=== PATIENT | male | born 1985 | race Caucasian/White ===

== ENCOUNTER 2020-03-15 01:29 | Emergency (ER) | payer SELFPAY ==
[~2020-03-15] VITALS: Ht 182.9 cm; Wt 111.1 kg
--- OUTSIDE RECORDS SUMMARY | 2020-03-15 01:32 | XMS REPORT ---
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 Allergies, Adverse Reactions, Alerts Allergy Name Allergy Type Status Severity Reaction(s) Onset Date Inacti ve Date Treating Clinician Comments No Known Allergies DA Active U 2020-03-04 00:00:00 Medications This patient has no known medications. 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 COMPARISON: None available. Location: TH. 3 views of the right knee: No acute fracture or dis location. Knee joint is preserved. Articular surfaces are well marginated without osteochondral lesions. Mineralization and the soft tissues are normal. Small suprapatellar joint fluid. IMPRESSION: No acute fracture or dislocation. Knee joint is preserved. Small suprapatellar joint fluid. at 181 Reported and signed by: Delgado Segovia M.D. CC: Glenn Swenson NP Technologist: RT DEMARCO(Tamika) Trnscrd Date/Time/By: 03/08/2020 (1816) : By: [email or web address] Orig Print D/T: S: 03/08/2020 (1819) PAGE 1 Signed Report Novel Coronavirus 2019 nCoV 2020-03-06 21:45:00 Novel Coronavirus 2019 nCoV (test code = COVID19) Negative Negative Does patient have the clinical criteria consistent with COVID-19? YIs the patien t going to be discharged home? YBASIC METABOLIC [id number] 15:35:00* Test Item Value Reference Range Comments SODIUM (test code = NA) 141 mmol/L 136-145 POTASSIUM (test code = K) 3.6 mmol/L 3.5-5.1 CHLORIDE (test code = CL) 106.0 mmol/L 98-107 CARBON DIOXIDE (test code = CO2) 30.0 mmol/L 21-32 ANION GAP (test code = GAP) 8.6 10-20 GLUCOSE (test code = GLU) 93 mg/dL 74-106 BLOOD UREA NITROGEN (test code = BUN) 11 mg/dL 7-18 GLOMERULAR FILTRATION RATE (test code = GFR) > 60 mL/min >=6 0 Estimated GFR by using Modified MDRD formula.Chronic kidney disease is defined as either kidney damageor GFR <60 mL/min/1.73 m2 for >3 months. CREATININE (test code = CREAT) 1.10 mg/dL 0.7-1.3 BUN/CREATININE RATIO (test code = BUN/CREA) 10.0 10-2 0 CALCIUM (test code = CA) 8.7 mg/dL 8.5-10.1 [id number] 15:35:00* Test Item Value Reference Range Comments TROPONIN-I (test code = TROPI) <0.015 ng/mL 0-0.045 B-TYPE NATRIURETIC [id number] 15:23:00* Test Item Value Reference Range Comments B-TYPE NATRIURETIC PEPTIDE (test code = BNP) 2.67 pgram/mL 0-1 00 BASIC METABOLIC [id number] 15:18:00* Test Item Value Reference Range Comments SODIUM (test code = NA) 141 mmol/L 136-145 POTASSIUM (test code = K) 3.6 mmol/L 3.5-5.1 CHLORIDE (test code = CL) 106.0 mmol/L 98-107 CARBON DIOXIDE (test code = CO2) mmol/L 21-32 ANION GAP (test code = GAP) 10-20 GLUCOSE (test code = GLU) mg/dL 74-106 BLOOD UREA NITROGEN (test code = BUN) mg/dL 7-18 GLOMERULAR FILTRATION RATE (test code = GFR) mL/min >=6 0 CREATININE (test code = CREAT) mg/dL 0.7-1.3 BUN/CREATININE RATIO (test code = BUN/CREA) 10-2 0 CALCIUM (test code = CA) 8.7 mg/dL 8.5-10.1 [id number] 15:18:00* Test Item Value Reference Range Comments TROPONIN-I (test code = TROPI) ng/mL 0-0.045 CBC W/O [id number] 14:52:00* Test Item Value Reference Range Comments WHITE BLOOD CELL (test code = WBC) 10.3 K/mm3 4.5-12.5 RED BLOOD CELL (test code = RBC) 4.71 mill/mm3 4.0-5.8 HEMOGLOBIN (test code = HGB) 15.7 gram/dL 13.0-17.5 HEMATOCRIT (test code = HCT) 43.8 % 42.0-52.0 MEAN CELL VOLUME (test code = MCV) 93.0 fL 80-98 MEAN CELL HGB (test code = MCH) 33.3 picogram 27.0-33.0 MEAN CELL HGB CONCETRATION (test code = MCHC) 35.8 gram/dL 33 .0-36.0 RED CELL DISTRIBUTION WIDTH (test code = RDW) 12.4 % 11 .6-16.2 PLATELET COUNT (test code = PLT) 196 K/mm3 150-450 MEAN PLATELET VOLUME (test code = MPV) 11.6 fL 6.7-11.0 CBC W/O [id number] 14:45:00* Test Item Value Reference Range Comments WHITE BLOOD CELL (test code = WBC) K/mm3 4.5-12.5 RED BLOOD CELL (test code = RBC) mill/mm3 4.0-5.8 HEMOGLOBIN (test code = HGB) 15.7 gram/dL 13.0-17.5 HEMATOCRIT (test code = HCT) 43.8 % 42.0-52.0 MEAN CELL VOLUME (test code = MCV) fL 80-98 MEAN CELL HGB (test code = MCH) picogram 27.0-33.0 MEAN CELL HGB CONCETRATION (test code = MCHC) gram/dL 33 .0-36.0 RED CELL DISTRIBUTION WIDTH (test code = RDW) % 11 .6-16.2 PLATELET COUNT (test code = PLT) K/mm3 150-450 MEAN PLATELET VOLUME (test code = MPV) fL 6.7-11.0 - XR CHEST 1 [id number] 13:21:00 FAX: Alessandra Becker MD [place]: St: REG Name: ANN BULLOCK [facility] : [birth year] Age/S: 35/M S[facility] Unit #: [id number] Loc: [place] [address] Phys: Alessandra Becker MD Acct: [id number] Dis Date: Status: REG ER PHONE #: [phone] Exam Date: 03/04/2020 125 FAX #: [phone] Reason: Shortness of Breath EXAMS: CPT CODE: [id number] XR CHEST 1 V [id number] REASON FOR EXAM: Shortness of Breath Exam Order Date: 03/04/2020 12:26 PM Ordering M.Vicky.: Alessandra Becker MD PROCEDURE: - XR CHEST 1 V COMPARISON: None FINDINGS: The lungs are clear. There is no pleural effusion or pneumothorax. Pulmonary vascularity is within normal limits. Cardiomediastinal silhouette is normal in size for technique. The mediastinal contours are within normal limits. Musculoskeletal structures are within normal limits. The visuali zed upper abdomen is within normal limits. IMPRESSION: No acute cardiopulmonary process. Location: [facility] at 1321 Reported and signed by: Alvarado Melgar MD CC: Alessandra Becker MD Technologist: MARIANA LEMUS, RT(R) Trnscrd Date/Time/By: 03/04/2020 (7972) : By: [email or web address] Orig Print D/T: S: 03/04/2020 (8179) HAO GIBSON 1 Signed Report
[2020-03-15 01:56] VITALS: BP 145/88
[2020-03-15] MEDS ORDERED: PREDNISONE 20 MG TAB PO SCH (02:00)
[2020-03-15] MEDS ORDERED: PREDNISONE 20 MG TAB ONE (02:06)
== END 2020-03-15 02:32 | disposition home or self-care (01) ==
LOC: ER 01:29
DX: S83.91XA Sprain of unspecified site of right knee, initial encounter (principal); M25.561 Pain in right knee; M25.461 Effusion, right knee
CPT/HCPCS: 99282; J7512